=== PATIENT | male | born 1990 | race African-American/Black ===

== ENCOUNTER 2020-01-29 12:43 | Emergency (ER) | payer MEDICAID ==
[~2020-01-29] VITALS: Ht 180.3 cm; Wt 81.6 kg
[2020-01-29 12:44] VITALS: BP 131/66
--- NOTE | 2020-01-29 12:44 | NUR ---
ED Nurse Note: pt brought by RA 70 from home due to seizure activity. witnessed by family member. per EMS, they found him on floor. pt is noncompliant on his meds. unknown cause. no visible head trauma noted. arousble with light touch. pt still postictal. skin warm to touch. no open wound noted. respirations even and non-labored noted. on nuclear monitoring technician. seizure padded applied. side rails up x2. maintained airway. will wait for the further order.
[2020-01-29] MEDS ORDERED: levETIRAcetam 500 MG in D5W 110 ML IV ONE (13:00)
--- NOTE | 2020-01-29 13:09 | NUR ---
ED Nurse Note: pt went down for CT head.
--- NOTE | 2020-01-29 13:21 | NUR ---
ED Nurse Note: pt came back from CT. cont to boris.
[2020-01-29] MEDS ORDERED: KEPPRA500 M4 ORAL ×2 (13:25→14:16)
--- NOTE | 2020-01-29 13:31 | Diagnostic Imaging Report ---
EXAM: CT Head Without Intravenous Contrast CLINICAL HISTORY: SZ TECHNIQUE: Axial computed tomography images of the head/brain without intravenous contrast. CTDI is 53.4 mGy and DLP is 1152.4 mGy-cm. One or more of the following dose reduction techniques were used: automated exposure control, adjustment of the mA and/or kV according to patient size, use of iterative reconstruction technique. COMPARISON: No relevant prior studies available. FINDINGS: Brain: No hemorrhage or mass effect. No clear edema. Ventricles: Unremarkable. No ventriculomegaly. Bones/joints: Unremarkable. No acute fracture. Soft tissues: Left parietal scalp swelling may reflect a contusion. Sinuses: Mucosal thickening to the maxillary sinuses, right more pronounced than left. Mastoid air cells: Unremarkable as visualized. No mastoid effusion. IMPRESSION: Left parietal scalp swelling may reflect contusion. No acute brain or skull injury. Mucosal thickening to the maxillary sinuses, right more pronounced than left.
[2020-01-29 13:33] LABS: BASOPHILS % (AUTO) 0.9 % (0.0-2.0); EOSINOPHILS % (AUTO) 0.8 % (0.0-3.0); HEMATOCRIT 44.5 % (42.0-52.0); HEMOGLOBIN 13.7 G/DL (14.2-18.0); LYMPHOCYTES % (AUTO) 23.3 % (20.0-45.0); MEAN CORPUSCULAR VOLUME 79 FL (80-99); MONOCYTES % (AUTO) 5.7 % (1.0-10.0); NEUTROPHILS % (AUTO) 69.3 % (45.0-75.0); PLATELET COUNT 278 K/UL (150-450); RED BLOOD COUNT 5.63 M/UL (4.70-6.10); RED CELL DISTRIBUTION WIDTH 12.3 % (11.6-14.8)
[2020-01-29 13:35] LABS: ANION GAP 24 mmol/L (5-15); BLOOD UREA NITROGEN 13 mg/dL (7-18); CALCIUM 9.4 MG/DL (8.5-10.1); CARBON DIOXIDE 14 MMOL/L (21-32); CHLORIDE 101 MMOL/L (98-107); CREATININE 1.4 MG/DL (0.55-1.30); POTASSIUM 4.4 MMOL/L (3.5-5.1); SODIUM 139 MMOL/L (136-145)
[2020-01-29 13:41] LABS: ALANINE AMINOTRANSFERASE 20 U/L (12-78); ALBUMIN 4.6 G/DL (3.4-5.0); ALBUMIN/GLOBULIN RATIO 1.2 (1.0-2.7); ALKALINE PHOSPHATASE 52 U/L (46-116); ASPARTATE AMINO TRANSFERASE 15 U/L (15-37); BILIRUBIN,TOTAL 0.1 MG/DL (0.2-1.0)
--- NOTE | 2020-01-29 14:30 | Emergency Room Report ---
History of Present Illness General Chief Complaint: Seizure Source: EMS (Severiano Mauricio MD) Present Illness HPI 29-year-old male presents ED status post seizure. Witnessed by family today. Had 2 seizures. No tongue or trauma. No bowel or bladder incontinence. Found on the ground. Patient appeared agitated per EMS and was given Versed. History of seizures. Takes Keppra but family states he is typically noncompliant. Patient lethargic on arrival. Unable to provide any additional history at this time. No reported fevers or chills. No reported cough or congestion. No other aggravating relieving factors. Denies any other associated symptoms (Severiano Mauricio MD) Allergies: Coded Allergies: No Known Allergies (Unverified , 01/29/20) COVID-19 Screening Contact w/high risk pt: No Recent Travel to affected area: No Experienced COVID-19 symptoms?: No (Severiano Mauricio MD) Patient History Past Medical History: seizures Past Surgical History: none Pertinent Family History: none Social History: Denies: smoking, alcohol use, drug use Immunizations: UTD Reviewed Nursing Documentation: PMH: Agreed; PSxH: Agreed (Severiano Mauricio MD) Nursing Documentation-PMH Hx Seizures: Yes (Severiano Mauricio MD) Review of Systems All Other Systems: limited (Severiano Mauricio MD) Physical Exam Vital Signs Date Time Temp Pulse Resp B/P (MAP) Pulse Ox O2 Delivery O2 Flow Rate FiO2 01/29/20 12:44 98.1 84 18 131/66 100 Room Air Sp02 EP Interpretation: reviewed, normal General Appearance: no apparent distress, GCS 15, non-toxic, lethargic, Postictal Head: normocephalic, atraumatic Eyes: bilateral eye normal inspection, bilateral eye PERRL ENT: hearing grossly normal, normal pharynx, no angioedema, normal voice Neck: full range of motion, supple/symm/no masses Respiratory: chest non-tender, lungs clear, normal breath sounds, speaking full sentences Cardiovascular #1: regular rate, rhythm, no edema Cardiovascular #2: 2+ carotid (R), 2+ carotid (L), 2+ radial (R), 2+ radial (L) , 2+ dorsalis pedis (R), 2+ dorsalis pedis (L) Gastrointestinal: normal bowel sounds, non tender, soft, non-distended, no guarding, no rebound Rectal: deferred Genitourinary: normal inspection, no CVA tenderness Musculoskeletal: back normal, normal range of motion, gait/station normal, non- tender Neurologic: other - postictal Psychiatric: other - postictal Reflexes: 3+ bicep (R), 3+ bicep (L), 3+ tricep (R), 3+ tricep (L), 3+ knee (R) , 3+ knee (L) Skin: no rash Lymphatic: no adenopathy (Severiano Mauricio MD) Medical Decision Making Diagnostic Impression: Primary Impression: Seizure Additional Impression: Scalp contusion ER Course Patient signed out to me from previous provider pending reevaluation. Briefly, 29-year-old male history of seizure disorder presents today for seizure given Versed prior to arrival. Labs have returned within normal limits. CT head was unremarkable. The patient is now awake alert. He is waiting for a ride home. He states he has been taking his Keppra. I advised him to follow-up with his PMD and neurologist soon as possible as he may require an increase in his current regimen. He was also counseled not to drive, operate heavy machinery, swim or participate in any other dangerous activity that could result in life- threatening illness should he experience another seizure. He understands and agrees with the treatment plan. Laboratory Tests Test 01/29/20 13:00 White Blood Count 10.0 K/UL (4.8-10.8) Red Blood Count 5.63 M/UL (4.70-6.10) Hemoglobin 13.7 G/DL (14.2-18.0) L Hematocrit 44.5 % (42.0-52.0) Mean Corpuscular Volume 79 FL (80-99) L Mean Corpuscular Hemoglobin 24.3 PG (27.0-31.0) L Mean Corpuscular Hemoglobin Concent 30.8 G/DL (32.0-36.0) L Red Cell Distribution Width 12.3 % (11.6-14.8) Platelet Count 278 K/UL (150-450) Mean Platelet Volume 6.4 FL (6.5-10.1) L Neutrophils (%) (Auto) 69.3 % (45.0-75.0) Lymphocytes (%) (Auto) 23.3 % (20.0-45.0) Monocytes (%) (Auto) 5.7 % (1.0-10.0) Eosinophils (%) (Auto) 0.8 % (0.0-3.0) Basophils (%) (Auto) 0.9 % (0.0-2.0) Sodium Level 139 MMOL/L (136-145) Potassium Level 4.4 MMOL/L (3.5-5.1) Chloride Level 101 MMOL/L (98-107) Carbon Dioxide Level 14 MMOL/L (21-32) L Anion Gap 24 mmol/L (5-15) H Blood Urea Nitrogen 13 mg/dL (7-18) Creatinine 1.4 MG/DL (0.55-1.30) H Estimated Glomerular Filtration Rate > 60 mL/min (>60) Glucose Level 130 MG/DL (74-106) H Calcium Level 9.4 MG/DL (8.5-10.1) Total Bilirubin 0.1 MG/DL (0.2-1.0) L Aspartate Amino Transferase (AST) 15 U/L (15-37) Alanine Aminotransferase (ALT) 20 U/L (12-78) Alkaline Phosphatase 52 U/L (46-116) Total Protein 8.5 G/DL (6.4-8.2) H Albumin 4.6 G/DL (3.4-5.0) Globulin 3.9 g/dL Albumin/Globulin Ratio 1.2 (1.0-2.7) Salicylates Level 3.8 ug/mL (2.8-20) Acetaminophen Level < 2 MCG/ML (10-30) L Serum Alcohol < 3 mg/dL (Wayne Daniel MD) EKG Diagnostic Results Rate: normal Rhythm: NSR ST Segments: no acute changes ASA given to the pt in ED: No (Severiano Mauricio MD) Rhythm Strip Diag. Results EP Interpretation: yes Rhythm: NSR, no PVC's, no ectopy (Severiano Mauricio MD) CT/MRI/US Diagnostic Results CT/MRI/US Diagnostic Results : Imaging Test Ordered: CT head Impression no acute process (Severiano Mauricio MD) CT/MRI/US Diagnostic Results : Impression Procedure: CT Head no Contrast EXAM: CT Head Without Intravenous Contrast CLINICAL HISTORY: SZ TECHNIQUE: Axial computed tomography images of the head/brain without intravenous contrast. CTDI is 53.4 mGy and DLP is 1152.4 mGy-cm. One or more of the following dose reduction techniques were used: automated exposure control, adjustment of the mA and/or kV according to patient size, use of iterative reconstruction technique. COMPARISON: No relevant prior studies available. FINDINGS: Brain: No hemorrhage or mass effect. No clear edema. Ventricles: Unremarkable. No ventriculomegaly. Bones/joints: Unremarkable. No acute fracture. Soft tissues: Left parietal scalp swelling may reflect a contusion. Sinuses: Mucosal thickening to the maxillary sinuses, right more pronounced than left. Mastoid air cells: Unremarkable as visualized. No mastoid effusion. IMPRESSION: Left parietal scalp swelling may reflect contusion. No acute brain or skull injury. Mucosal thickening to the maxillary sinuses, right more pronounced than left. Dictated By: David Do MD Electronically Signed By: David Do MD Signed Date/Time 01/29/20 1330 (Wayne Daniel MD) Last Vital Signs Date Time Temp Pulse Resp B/P (MAP) Pulse Ox O2 Delivery O2 Flow Rate FiO2 01/29/20 12:44 84 18 Room Air 01/29/20 12:44 98.1 131/66 (87) 100 Status: improved (Severiano Mauricio MD) Disposition: HOME, SELF-CARE Condition: Stable Scripts Levetiracetam (KEPPRA) 500 Mg Tablet 500 MG ORAL EVERY 12 HOURS for seizure for 30 Days, #60 TAB 0 Refills Prov: Wayne Daniel MD 01/29/20 Referrals: NOT CHOSEN IPA/,REFERRING (PCP) [facility] Patient Instructions: Seizure, Adult Additional Instructions: Please follow-up with your primary care doctor in the next 1 to 3 days to discuss this emergency department visit and for reevaluation. You are not to drive, operate heavy machinery, swim unattended, or perform any activity that could result in significant injury if you were to have a seizure. If you have any new or worsening symptoms please return to the emergency department for reevaluation. Please note that this report is being documented using DRAGON technology. This can lead to erroneous entry secondary to incorrect interpretation by the dictating instrument. Severiano Mauricio MD Jan 29, 2020 14:30 Wayne Daniel MD Jan 29, 2020 15:52
[2020-01-29 15:15] VITALS: BP 109/83
--- NOTE | 2020-01-29 15:20 | NUR ---
ED Nurse Note: pt is awake. AAO x4. per pt, on meds regulary and last time he saw the neuro dr was 3 months ago. notified. will wait for the family member to sheepskin pickler.
[2020-01-29 17:37] VITALS: BP 117/81
--- NOTE | 2020-01-29 17:37 | NUR ---
ER DISCHARGE NOTE: Patient is cleared to be discharged per ERMD, pt is aox4, on room air, with stable vital signs. pt was given dc and prescription instructions, pt was able to verbalize understanding, pt id band and iv site removed without complications. pt is able to ambulate with steady gait. pt took all belongings.
== END 2020-01-29 17:37 | disposition home or self-care (01) ==
LOC: EDBD 12:43 → EMR 13:50
DX: G40.909 Epilepsy, unspecified, not intractable, without status epilepticus (principal); S00.03XA Contusion of scalp, initial encounter; X58.XXXA Exposure to other specified factors, initial encounter; Y93.9 Activity, unspecified; Y92.9 Unspecified place or not applicable
CPT/HCPCS: 36415; 70450; 80053; 85025; 93005; 96361; 96374; G0480; G0481; J1953; J7030; Z7502; 99284